=== PATIENT | female | born 1955 | race Caucasian/White ===

== ENCOUNTER → 2017-10-16 | Outpatient (CLI) | payer BC ==
[~2017-10-16] MED LIST: ACET-1966 PO; ALPR-429 PO; AMIT-104 PO; CALC-852 PO; CARV12.577 PO; CICPT NS; CLO5 PO; DABI150C3 PO; FEXO-67 PO; FEXO-72 PO; HERB1CAP PO; LANS15CA28 PO; LANS15CA38 PO; LEVO-85 PO; LOR5/325 PO; MAX75 PO; MELO-150 PO; METF-411 PO; METXL50 PO; OLM20 PO; OMEP-218 PO; PNEU0.5D3 IM; SIM10 PO; SIMV-49 PO; TRIA-20 PO; TRIA10.8; TRIA10.8 INH; TRIA1CAP86 PO; [UNRECOGNIZED DRUG - REMARK]
--- NOTE | 2017-10-16 18:44 | RADIOLOGY IMAGING REPORT ---
FACILITY: [facility] [place] PATIENT NAME: Lashanda Sharp : 1955 MR: [id number] V: [id number] EXAM DATE: ORDERING PHYSICIAN: ADY CEBALLOS TECHNOLOGIST: [place] [facility] [place] Lashanda Sharp : 1955 Visit/Account:[id number] Date of Sevice: 10/16/2017 Right lower extremity venous Doppler duplex ultrasound scan. HISTORY: Leg swelling, right knee effusion. COMPARISON: None. A color flow Doppler duplex ultrasound examination with spectral analysis was performed on the lower extremity. The common femoral vein, superficial femoral vein, and popliteal vein are normal. These ve ssels compress and augment normally. The upper portions of the trifurcation veins are unremarkable. P ortions of the deep veins of the calf are obscured. No intraluminal filling defects are identified to suggest acute thrombus in the deep venous system. Note that Doppler ultrasound is somewhat insensiti ve below the knee. A venous reflux study was not performed at this time. IMPRESSION: Negative for acute deep vein thrombosis. Report Dictated By: Jeffery Chavez MD at 10/16/2017 6:39 PM Report E-Signed By: Jeffery Chavez MD at 10/16/2017 6:40 PM WSN:[id number]
== END ==
LOC: US 15:34
PROVIDERS: ATTEND Physician Assistant
DX: M25.461 Effusion, right knee (principal)

== ENCOUNTER → 2017-10-16 | Outpatient (REF) | payer BC | LOC: ZZSENDIN 15:43 | PROVIDERS: ATTEND Physician Assistant | DX: M25.461 Effusion, right knee (principal) | CPT/HCPCS: 85379 ==

== ENCOUNTER 2018-05-24 01:00 | Day surgery (SDC) | payer BC ==
[~2018-05-24] VITALS: Ht 165.1 cm; Wt 85.7 kg
[2018-05-24] VITALS (7 sets, daily range): BP systolic 97–154; BP diastolic 64–92
[~2018-05-24 01:00] MED LIST changes: +DIPH-740 PO; -METF-411 PO; +METF-450 PO; +SIMV10TA98 PO
[2018-05-24] MEDS ORDERED: PROPOFOL EMUL(*) 10MG/ML 20 ML 40 ML ONE (06:52)
[2018-05-24] MEDS ORDERED: NORMOSOL R SOLN(*) 1000 ML BAG 1,000 ML IV PRN (07:20)
[2018-05-24] MEDS ORDERED: LIDOCAINE/SOD BICARB 8.4% SYR ID ONE (07:20)
[2018-05-24] MEDS ORDERED: PROPOFOL EMUL(*) 10MG/ML 20 ML 20 ML ONE (08:21)
== END 2018-05-24 09:30 | disposition home or self-care (01) ==
LOC: OR 01:00
PROVIDERS: ATTEND Surgery
DX: I85.00 Esophageal varices without bleeding (principal); K29.70 Gastritis, unspecified, without bleeding; D64.9 Anemia, unspecified; G47.33 Obstructive sleep apnea (adult) (pediatric); I10 Essential (primary) hypertension; I48.2 Chronic atrial fibrillation; E11.9 Type 2 diabetes mellitus without complications; K58.9 Irritable bowel syndrome, unspecified; E78.00 Pure hypercholesterolemia, unspecified
CPT/HCPCS: 00813; 36416; 43239; 45378; 82948; 87077; 88305; 88344; J2704